=== PATIENT | male | born 1975 | race Caucasian/White ===

== ENCOUNTER 2021-09-07 10:08 | Emergency (ER) | payer OTHER, SELFPAY ==
[2021-09-07 10:18] VITALS: BP 149/109; PULSE 74; RESP 18; TEMP 36.9; O2SAT 99
--- NOTE | 2021-09-07 10:42 | ED.GENADULT ---
HPI - General Adult General Chief complaint: Upper Respiratory Infection Stated complaint: Sore Throat,Cough,Bilateral Ear Irritation Source: patient Mode of arrival: ambulatory Limitations: no limitations History of Present Illness HPI narrative: Pt presents for evaluation of sick symptoms for the last 3 days. Symptoms include sinus congestion, postnasal drainage, sore throat, chills, body aches, and nonproductive cough. He denies any fever, nausea, vomiting, diarrhea. No recent sick contacts to his knowledge. He does not smoke. He has been taking OTC cough and cold medications. He does not feel like the medications have made much of a difference in terms of his symptoms however Nyquil has assisted him in getting sleep. He states that laying down causes an increase in coughing. No additional complaints or concerns. Related Data Home Medications Medication Instructions Recorded Confirmed guselkumab 100 mg/mL subcutaneous 1 syr subcut [id number] 09/07/21 09/07/21 syringe (Tremfya) Allergies Allergy/AdvReac Type Severity Reaction Status Date / Time No Known Allergies Allergy Verified 09/07/21 10:40 Review of Systems Review of Systems: CONSTITUTIONAL: Reports chills. Denies fever or sweats. EYES: Denies visual changes, redness, or discharge. ENT: Reports sinus congestion, postnasal drainage and sore throat. CARDIOVASCULAR: Denies chest pain, palpitations, or edema. RESPIRATORY: Reports cough. Denies dyspnea. GASTROINTESTINAL: Denies abdominal pain, nausea, vomiting, or diarrhea. GENITOURINARY: Denies dysuria or hematuria. SKIN: Denies rash or itching. MUSCULOSKELETAL: Reports generalized body aches NEUROLOGIC: Denies headache, numbness, dizziness, or weakness. PSYCHIATRIC: Denies anxiety or depression. [facility] Past Medical History Medical History (Updated 09/07/21 @ 10:57 by BESSIE Brown, PORFIRIO) Sleep apnea Viral URI Surgical History Surgical History No pertinent past surgical history Family History Family History Father BPH (benign prostatic hyperplasia) Social History Social History (Updated 09/07/21 @ 10:52 by BESSIE Brown, BC) Smoking status: Never smoker Alcohol intake: current Alcohol use details: occasional Substance use: never Living arrangements: with family Gender identity (if verbalized by the patient): Male Sexual Orientation (if Verbalized by the Patient): Straight or Heterosexual Spiritual care concerns: No Exam Narrative: GENERAL: Well-appearing, well-nourished, and in no acute distress. HEAD: Normocephalic, atraumatic. EYES: PERRLA and EOMI. ENT: Nares clear, no rhinorrhea or epistaxis. Mucous membranes moist. Oropharynx without tonsillar hypertrophy exudate or other lesions. Bilateral TMs mildly erythematous NECK: Supple. No adenopathy or masses. No carotid bruits or JVD CHEST: Clear to auscultation. No respiratory distress. No wheezes rales or rhonchi HEART: Regular rate and rhythm. No murmur heard. Normal peripheral pulses. ABDOMEN: Soft, nontender, nondistended, normal active bowel sounds. EXTREMITIES: Normal range of motion. No edema. SKIN: Warm, dry, no rash. NEURO: No focal deficits. Alert and oriented x3. PSYCH: Normal mood and affect. Course Course Emergency Course: This is a 46-year-old male who present with complaints of sick symptoms. Strep, COVID, influenza were all negative. Exam is consistent with acute viral syndrome. Will discharge with Jeremy. He should follow up outpatient for further evaluation and treatment and return for worsening symptoms. Pt in agreement with plan of care. Level of Care: Express Care Visit Vital Signs Vital signs: Vital Signs Temperature 36.9 C 09/07/21 10:18 Pulse Rate 74 09/07/21 10:18 Respiratory Rate 18 09/07/21 10:18 Blood Pressure 149/109
== END 2021-09-07 10:59 | disposition home or self-care (01) ==
PROVIDERS: Emergency Provider Nurse Practitioner
DX: J06.9 Acute upper respiratory infection, unspecified (principal); Z20.822 Contact with and (suspected) exposure to COVID-19; G47.30 Sleep apnea, unspecified
CPT/HCPCS: 87081; 87426; 87804; 87880; 99213; C9803; G0463